=== PATIENT | male | born 1960 | race American Indian/Alaskan Native ===

== ENCOUNTER → 2024-09-21 | Outpatient (CLI) | payer MEDICARE, OTHER, SELFPAY ==
--- NOTE | 2024-09-21 | XR_ITS ---
Examination: Knee bilateral, 7 views Technique: Knee AP, lateral, oblique each knee total 6 views, bilateral AP knees single view total 7 views Date and time of exam: September 21, 2024 1312 hours INDICATIONS: Bilateral knee pain beginning 3 years ago. FINDINGS: Moderate osteopenia Right knee moderate to advanced narrowing medial joint space moderate osteoarthritis right patellofemoral joint Left knee moderate narrowing medial joint space moderate osteoarthritis lateral patellofemoral joint No fracture or patellar dislocation Old bone density at the lateral margin left patella IMPRESSION: Right knee moderate to advanced narrowing medial joint space Left knee moderate narrowing medial joint space
== END | disposition home or self-care (01) ==
PROVIDERS: PCP Nurse Practitioner Family; Referring Provider Nurse Practitioner Family; Visit Provider Nurse Practitioner Family
DX: M25.862 Other specified joint disorders, left knee (principal); M25.861 Other specified joint disorders, right knee
CPT/HCPCS: 73564